=== PATIENT | male | born 1945 | race Caucasian/White ===

== ENCOUNTER 2018-02-08 15:05 | Outpatient (CLI) | payer MEDICARE, BC ==
[2018-02-08 16:24] LABS: Hemoglobin 14.7 g/dL (14.0-18.0); Mean Corpuscular HGB CONC 32.3 g/dL (32.0-36.0); Mean Corpuscular Hemoglobin 28.5 pg (27.0-31.0); Mean Corpuscular Volume 88.4 fL (78.0-98.0); Mean Platelet Volume 7.9 fL (7.4-10.4); Platelet Count 301 thou/uL (130-400); RBC Distribution Width 13.3 % (11.5-14.5); Red Blood Cell (RBC) Count 5.14 mill/uL (4.70-6.10); White Blood Cell (WBC) Count 8.9 thou/uL (4.8-10.8)
[2018-02-08 16:36] LABS: PTT 30.7 SEC (22.9-36.1); Prothrombin Time 13.7 SEC (12.0-14.7)
[2018-02-08 16:50] LABS: Anion Gap 16 mmol/L (10-20); BUN (Urea Nitrogen) 18 mg/dL (8.4-25.7); Calc. Creatinine Clearance 0 mL/min (70-130); Calcium 10.4 mg/dL (7.8-10.44); Carbon Dioxide 26 mmol/L (23-31); Chloride 103 mmol/L (98-107); Estimated GFR-MDRD 78; Glucose 123 mg/dL (83-110); Sodium 140 mmol/L (136-145)
--- NOTE | 2018-02-09 22:03 | EKG ---
Test Reason : Blood Pressure : / mmHG Vent. Rate : 073 BPM Atrial Rate : 073 BPM P-R Int : 000 ms QRS Dur : 096 ms QT Int : 384 ms P-R-T Axes : 000 059 084 degrees QTc Int : 423 ms Electronic atrial pacemaker When compared with ECG of 10-JUN-2009 12:45, Electronic atrial pacemaker has replaced Sinus rhythm Borderline criteria for Inferior infarct are no longer Present Confirmed by Lucy WASHINGTON ([id number]) on 02/09/2018 10:03:06 PM Referred By: TY Confirmed By:Lucy WASHINGTON
== END 2018-02-08 15:06 | disposition home or self-care (01) ==
LOC: LABBT 15:05
PROVIDERS: ATTEND Internal Medicine Cardiovascular Disease
DX: Z01.818 Encounter for other preprocedural examination (principal); I48.91 Unspecified atrial fibrillation
CPT/HCPCS: 80048; 85027; 85610; 85730; 93005; 93010

== ENCOUNTER 2018-02-14 05:50 | Observation (INO) | payer MEDICARE, BC ==
[2018-02-14] MEDS ORDERED: Lidocaine 1% (PF) 30 ML VIAL ONE (06:33)
[2018-02-14] MEDS ORDERED: Heparin 0 ML ONE (06:33)
[2018-02-14] MEDS ORDERED: Heparin 10,000 UNITS/1 ML VIAL ONE ×2 (06:34→09:56)
[2018-02-14] MEDS ORDERED: Phenylephrine HCL 10 MG/ML VIAL ONE (08:41)
[2018-02-14] MEDS ORDERED: Fentanyl 100 MCG/2 ML VIAL ONE (08:42)
[2018-02-14] MEDS ORDERED: Heparin 25,000 units/D5W 500 ML ONE (09:52)
[2018-02-14] MEDS ORDERED: DOPamine 400 MG/D5W 250 ML 0 ML ONE (09:57)
[2018-02-14] MEDS ORDERED: Isoproterenol 0.2 MG/1 ML AMP ONE (09:57)
[2018-02-14] MEDS ORDERED: Protamine Sulfate 50 MG/5 ML VIAL ONE (11:45)
[2018-02-14] MEDS ORDERED: Dextrose 5% in Water 1,000 ML IV PRN (13:02)
[2018-02-14] MEDS ORDERED: Dextrose 50% Abboject 50 ML SYRINGE IVP PRN (13:02)
[2018-02-14] MEDS ORDERED: Insulin Regular 300 UNITS/3 ML VIAL SC PRN (13:02)
[2018-02-14 14:11] VITALS: BMI 26.4
--- NOTE | 2018-02-14 15:36 | OP ---
DATE OF PROCEDURE: 02/14/2018 TYPE OF REPORT: Electrophysiology study and radiofrequency ablation report. REFERRING PHYSICIAN: Dr. Vick. INDICATIONS FOR PROCEDURE: Mr. Ying is a 72-year-old man with history of congestive heart failure and ischemic cardiomyopathy, prior VT ablation 10 years ago. He is here due to recurrent atrial fibrillation episodes, which are highly symptomatic. DESCRIPTION OF PROCEDURE: The patient has received propofol by Anesthesia specialist and general anesthesia was performed. The left and right femoral veins were prepped and draped, and anesthetized using subcutaneous lidocaine and with ultrasound guidance, both veins was accessed x2. On the left vein, an 11-Sinhala sheath was used to advance the ICE catheter to the right atrium to monitor the transseptal procedure to study for any effusion. Also, a Preface sheath was used to advance a Duo-Deca catheter into the right atrium and the CS position. Through the right femoral venous area, a Thermocool SFST catheter was used to image the right atrium and His bundle position was delineated. Following this, transseptal puncture was performed through the sheath on the right side with a standard SL1 sheath. [employer] transseptal needle was used. After transseptal, heparin boluses and drip were administered to keep the ACT over 350 throughout the case. Left atrial 3Dmap was obtained using a 20-pole LASSO catheter. The temperature probe was in the esophagus to monitor and avoid excessive heating of the esophagus. Following this, a Thermocool SFST catheter, posterior wall as well pulmonary vein isolation was performed. Due to esophageal proximity and heating the esophagus, the posterior wall isolation was was just partial. LV pacing was performed advancing the ablation to the left ventricle and demonstrated no accessory pathway central retrograde VA conduction and the VA Wenckebach cycle length was 380 milliseconds. Burst atrial pacing be nothing just atrial flutter. Following that, again Isuprel was administered and any reconnections were sought up and ablated. At the end of the case, a total of 38 lesions delivered over time of 23 minutes 23 seconds at 40 vega with impedance ranging average to 120. At the end of the case, fluoroscopy and ICE catheter were used to rule out significant effusion. The patient remained stable throughout the procedure. At the end of the case, also ICD wires were rechecked and the ICD was reprogramed turning ATP therapies on. CONCLUSION: 1. Successful pulmonary venous isolation and near-complete posterior wall isolation procedure. 2. No inducible atrial arrhythmias. 3. No evidence of accessory pathway. 4. Normal AV mita function. PLAN: Routine postop care, Resume oral anticoagulants. Job ID: [id number] [facility]
[2018-02-14] MEDS: metFORMIN 500 MG TAB PO SCH ×2 (17:49→21:11)
[2018-02-14] MEDS ORDERED: Rivaroxaban 10 MG TAB PO SCH (18:00)
[2018-02-14] MEDS: Hydrochlorothiazide 25 MG TAB PO SCH (18:42)
[2018-02-14] MEDS: Finasteride 5 MG TAB PO SCH (18:42)
[2018-02-14] MEDS: Aspirin 81 mg Enteric Coated Tablet PO SCH (18:43)
[2018-02-14] MEDS ORDERED: Atorvastatin Calcium 40 MG TAB PO SCH (21:00)
[2018-02-14] MEDS ORDERED: Insulin Glargine 60 UNITS in Pre-Filled Syringe 1 EACH SC SCH (21:00)
[2018-02-15] MEDS ORDERED: Finasteride 5 MG TAB PO SCH (09:00)
[2018-02-15] MEDS ORDERED: Hydrochlorothiazide 25 MG TAB PO SCH (09:00)
[2018-02-15] MEDS ORDERED: Lisinopril 10 MG TAB PO SCH (09:00)
[2018-02-15] MEDS ORDERED: Insulin Glargine 60 UNITS in Pre-Filled Syringe 1 EACH SC SCH (09:00)
[2018-02-15] MEDS ORDERED: Ketorolac Tromethamine 30 MG/ML VIAL IVP PRN (09:24)
[2018-02-15] MEDS: metFORMIN 500 MG TAB PO SCH ×2 (09:39→12:03)
[2018-02-15 11:56] VITALS: TEMP 99.7
[2018-02-15] MEDS: Aspirin 81 mg Enteric Coated Tablet PO SCH (12:03)
[2018-02-15] MEDS: Finasteride 5 MG TAB PO SCH (12:03)
[2018-02-15] MEDS: Hydrochlorothiazide 25 MG TAB PO SCH (12:03)
[2018-02-15 12:06] VITALS: BP 122/71
[2018-02-15] MEDS ORDERED: Albuterol Sulfate HFA (OR ONLY) ONE (14:01)
--- NOTE | 2018-02-16 03:01 | DIS ---
DATE OF ADMISSION: 02/14/2018 DATE OF DISCHARGE: 02/15/2018 REASON/INDICATIONS FOR PROCEDURE: Mr. Ying is a pleasant 72-year-old man with prior history of ischemic cardiomyopathy albeit with improving LV systolic function, prior ICD implant who has recurrent atrial fibrillation episodes. He was admitted after elective pulmonary venous isolation procedure. HOSPITAL COURSE: Mr. Ying was admitted after the procedure and he remained stable overnight. Subsequent days, he remained in sinus rhythm with frequent atrial pacing. He has no recurrent atrial fibrillation. The vital signs remained stable. PHYSICAL EXAMINATION: VITAL SIGNS: Blood pressure 122/71, heart rate 75, respiratory rate 16, temperature 99.7 degrees Fahrenheit. GENERAL: Reveals alert and oriented man, in no apparent distress. NECK: Supple. Jugular veins not distended. CHEST: Coarse without crackles. HEART: Sounds are regular rate and rhythm. No murmur or gallop. ABDOMEN: Benign. Bowel sounds positive. EXTREMITIES: Lower extremity; no edema, clubbing, or cyanosis. DATABASE: Telemetry strips reveals again atrial lead paced rhythm, akhiok AV conduction. The patient developed a slight chest pain which improved with Toradol, pleuritic in appearance. ASSESSMENT AND PLAN: Mr. Ying is a pleasant 72-year-old man with prior history of cardiomyopathy, but improving LV function and paroxysmal atrial fibrillation. He underwent a pulmonary venous isolation procedure without difficulty. Posterior wall was also ablated, total of 23 minutes and 23 seconds ablation was done. He tolerated the procedure well. Today, he remained stable and ready to be discharged. On discharge, he will continue his prior medications which included Xarelto, aspirin, Lipitor, finasteride, hydrochlorothiazide, metformin, metoprolol. He also will be given Protonix 40 mg a day for a month and Carafate 1 g q.6 for next two weeks. He was given Lasix and potassium in case fluid overload symptoms occur, but today it appears to be well compensated. Routine followup in six weeks requested. Job ID: [id number] [facility]
== END 2018-02-15 15:57 | disposition home or self-care (01) ==
LOC: CCL 05:50 → 2SW 13:33
PROVIDERS: ADMIT Internal Medicine Cardiovascular Disease; ATTEND Internal Medicine Cardiovascular Disease
PROC: 4A023FZ Measurement of Cardiac Rhythm, Percutaneous Approach (ICD-10-PCS; principal; 2018-02-14)
PROC: 02583ZZ Destruction of Conduction Mechanism, Percutaneous Approach (ICD-10-PCS; 2018-02-14)
PROC: 02K83ZZ Map Conduction Mechanism, Percutaneous Approach (ICD-10-PCS; 2018-02-14)
DX: I48.0 Paroxysmal atrial fibrillation (principal); I25.5 Ischemic cardiomyopathy; I11.0 Hypertensive heart disease with heart failure; I50.22 Chronic systolic (congestive) heart failure; I25.10 Atherosclerotic heart disease of native coronary artery without angina pectoris; E11.9 Type 2 diabetes mellitus without complications; E78.5 Hyperlipidemia, unspecified; I48.92 Unspecified atrial flutter; Z79.01 Long term (current) use of anticoagulants; Z79.82 Long term (current) use of aspirin; Z79.84 Long term (current) use of oral hypoglycemic drugs; Z79.899 Other long term (current) drug therapy; Z95.810 Presence of automatic (implantable) cardiac defibrillator; Z95.1 Presence of aortocoronary bypass graft
CPT/HCPCS: 76942; 82962 ×2; 85347 ×2; 93005; 93613; 93622; 93623; 93656; 93662; 96374; C1730; C1731; C1732 ×2; C1759; C1769; G0378; 36416; 93010; J1265; J1644; J1885; J2001; J2370; J2720; J3010

== ENCOUNTER 2023-03-19 09:17 | Outpatient (CLI) | payer MEDICARE | END 2023-03-19 09:18 | disposition home or self-care (01) | LOC: RAD 09:17 | PROVIDERS: ATTEND Otolaryngology Otolaryngic Allergy | DX: Z01.818 Encounter for other preprocedural examination (principal) | CPT/HCPCS: 71046 ==

== ENCOUNTER 2023-03-23 07:11 | Outpatient (CLI) | payer MEDICARE ==
[2023-03-23] MEDS ORDERED: Magnevist 469MG/ML 20 ML VIAL ONE (13:13)
== END 2023-03-23 07:12 | disposition home or self-care (01) ==
LOC: MRI 07:11
PROVIDERS: ATTEND Otolaryngology Otolaryngic Allergy
DX: H90.5 Unspecified sensorineural hearing loss (principal)
CPT/HCPCS: 70553